=== PATIENT | male | born 1970 | race Caucasian/White ===

== ENCOUNTER 2019-01-10 14:24 | Emergency (ER) | payer SELFPAY ==
[~2019-01-10] VITALS: Wt 79.1 kg
[2019-01-10 14:26] VITALS: BP 115/78; PULSE 56; RESP 18
[2019-01-10] MEDS ORDERED: IBUP-1542 PO (15:17)
[2019-01-10] MEDS ORDERED: BENZ-6 PO (15:17)
[2019-01-10] MEDS ORDERED: AMOX500C2 PO (15:17)
--- NOTE | 2019-01-10 16:32 | ERD ---
ER Documentation Chief Complaint Chief Complaint RIGHT EAR PAIN HPI 48-year-old male patient with no significant past medical history presents the ED complaining of a dry cough that has been going on for the last 3 weeks as well as right ear pain. Patient reports that he has not taking any medications aside from Tylenol for his pain. States that he feels like he hears a whistling sensation of his right ear. Denies any hearing loss. Denies any head or neck injuries. Denies any fever, chills, nausea, vomiting, diarrhea, neck stiffness. Denies any chest pain, abdominal pain, dyspnea on exertion. ROS All systems reviewed and are negative except as per history of present illness. Medications Home Meds Active Scripts Ibuprofen* (Motrin*) 600 Mg Tab, 600 MG PO Q6, #30 TAB take with food Prov:LYNDA HALLMAN-Mike 01/10/19 Benzonatate* (Tessalon Perle*) 100 Mg Capsule, 100 MG PO Q8H PRN for COUGH, #20 CAP Prov:LYNDA HALLMAN-C 01/10/19 Amoxicillin* (Amoxicillin*) 500 Mg Cap, 500 MG PO TID for 10 Days, CAP Prov:LYNDA HALLMAN-C 01/10/19 PMhx/Soc History of Surgery: Yes (gallbladder sx, R ear sx) Hx Alcohol Use: No Hx Substance Use: No Hx Tobacco Use: No Smoking Status: Never smoker FmHx Family History: No diabetes, No coronary disease Physical Exam Vitals Vital Signs Date Temp Pulse Resp B/P (MAP) Pulse Ox O2 O2 Flow FiO2 Time Delivery Rate 01/10/19 98.0 56 18 115/78 99 14:26 (90) Physical Exam Const: [id number], well-nourished. In no acute distress. Head: Atraumatic, normocephalic Eyes: Normal Conjunctiva without injection. No purulent discharge. PERRLA. EOMI ENT: Normal external ear. Left ear canal without erythema. Left tympanic membrane pearly velazquez without effusion or bulging. Right tympanic membrane decreased reflex, bulging with some purulent discharge in the ear canal. No tenderness palpation of the tragus or mastoid bilaterally. Nasal canal clear with normal turbinates. Moist oropharynx without tonsillar exudates. Non- erythematous pharynx. Uvula midline. No drooling. No trismus. Neck: No cervical midline tenderness. Full range of motion. No meningismus. No cervical lymphadenopathy. No JVD. Resp: Clear to auscultation bilaterally. No wheezing, rhonchi, rales, or crackles. No accessory muscle use. No retractions. Cardio: Regular rate and rhythm. No murmurs, rubs or gallops. Abd: Soft, non tender, non distended. Normal bowel sounds. No palpable masses. No rebound tenderness. No guarding. Negative McBurney's Point. Negative Brownlee's Sign. Skin: Normal skin turgor. No petechiae or rashes Back: No midline tenderness. No CVA tenderness. Ext: No cyanosis, or edema. Distal pulses intact bilaterally. Neur: Awake and alert. Normal gait. Normal coordination. Cranial Nerves II- VII intact. Normal finger to nose. Muscle strength 5/5. Sensation intact. Psych: Normal Mood and Affect Procedures/MDM 48-year-old male patient with no significant past medical history presents the ED complaining of right ear pain, cough. Patient is afebrile and nontoxic- appearing. Patient's physical exam is consistent with otitis media. Patient does not have tenderness to palpation of tragus or mastoid. Low suspicion for otitis externa or mastoiditis. Patient's physical exam include lungs which were clear to auscultation and a normal pulse oximetry. Patient is speaking in full sentences. There is a low suspicion for tympanic membrane rupture, pneumonia, epiglottitis, croup, viral/strep pharyngitis, sinusitis, peritonsillar abscess, retropharyngeal abscess, meningitis, sepsis, acute abdomen or other emergent conditions. This patient presents to the ED with symptoms consistent with a viral acute upper respiratory infection. Patient's physical exam include lungs which were clear to auscultation and a normal pulse oximetry. There is a low suspicion for pneumonia, pneumothorax, mononucleosis, pulmonary embolism, epiglottitis, otitis media, otitis externa, viral/strep pharyngitis, sinusitis, myocarditis, pericarditis, endocarditis, peritonsillar abscess, mastoiditis, retropharyngeal abscess, meningitis, sepsis, acute abdomen or other emergent conditions. Diagnosis: Right ear pain, Cough Discharge medications: Ibuprofen, Tessalon Perles, Amoxicillin Follow up with primary care physician in 1-2 days. Instructed patient to return to the ED sooner for any worsening symptoms. Patient's questions were answered. Patient is hemodynamically stable. Patient understood and agreed with discharge plan. Patient discharged stable. Disclaimer: Inadvertent spelling and grammatical errors are likely due to EHR/dictation software use and do not reflect on the overall quality of patient care. Also, please note that the electronic time recorded on this note does not necessarily reflect the actual time of the patient encounter. Departure Diagnosis: Primary Impression: Right ear pain Additional Impression: Cough Condition: Stable Patient Instructions: Otitis Media, Abx Tx (Adult), Uri, Viral, No Abx (Adult) Referrals: [facility] YOU HAVE RECEIVED A MEDICAL SCREENING EXAM AND THE RESULTS INDICATE THAT YOU DO NOT HAVE A CONDITION THAT REQUIRES URGENT TREATMENT IN THE EMERGENCY DEPARTMENT. FURTHER EVALUATION AND TREATMENT OF YOUR CONDITION CAN WAIT UNTIL YOU ARE SEEN IN YOUR DOCTORS OFFICE WITHIN THE NEXT 1-2 DAYS. IT IS YOUR RESPONSIBILITY TO MAKE AN APPOINTMENT FOR FOLOW-UP CARE. IF YOU HAVE A PRIMARY DOCTOR --you should call your primary doctor and schedule an appointment IF YOU DO NOT HAVE A PRIMARY DOCTOR YOU CAN CALL OUR PHYSICIAN REFERRAL HOTLINE AT IF YOU CAN NOT AFFORD TO SEE A PHYSICIAN YOU CAN CHOSE FROM THE FOLLOWING [facility] [address] [facility]. [facility] [address] [facility]. [facility] [address] [facility] [facility] [address] [facility]. [facility] [address] [facility]. [facility]. [address] [facility] Additional Instructions: Llame al doctor MAANA y michael allan [place] PARA DENTRO DE 2-3 WILSON.Dgale a la secretaria que nosotros le instruimos hacer esta [place].Avise o llame si maya condicin se empeora antes de la [place]. Regresa aqui si peor o no mejor. LYNDA HALLMAN PA-C January 10, 2019 16:32
== END 2019-01-10 15:55 | disposition home or self-care (01) ==
LOC: FTE 14:24
DX: H92.01 Otalgia, right ear (principal)
CPT/HCPCS: 99283